=== PATIENT | male | born 1995 | race African-American/Black ===

== ENCOUNTER 2019-09-15 12:30 | Emergency (ER) | payer BC ==
[~2019-09-15] VITALS: Ht 177.8 cm; Wt 90.7 kg
[2019-09-15 13:53] VITALS: BP 144/85
== END 2019-09-15 15:15 | disposition home or self-care (01) ==
LOC: ER 12:30
DX: R07.89 Other chest pain (principal)
CPT/HCPCS: 71046; 93005; 99283